=== PATIENT | female | born 1945 | race Caucasian/White ===

== ENCOUNTER 2024-03-22 09:50 | Outpatient (AMB) | payer MEDICARE, OTHER, SELFPAY ==
--- NOTE | 2024-03-22 09:52 | A.OFFPC_ITS ---
Vital Signs 03/22/24 10:03 Height 5 ft 1.81 in Weight 111 lb 8 oz BMI 20.5 BP 128/66 Blood Pressure Location Rt brachial Position Sitting Respiration 14 Pulse 64 Pulse Source Pulse Oximeter Intake Visit Reasons: Physical Exam Intake Note: New patient visit Import Dispatcher Required: No Allergies No Known Allergies Allergy (Verified 03/22/24 09:53) Tobacco use date assessed: 03/22/24 Fall risk assessment: No Falls in past year Last assessed Fall Risk: 03/22/24 Dental Screening Dental Screen Date: 03/22/24 Did you have a dental visit in the last 12 months?: Yes Did you have a dental problem in the last 6 months where you did not have access to dental care?: No Was dental information given to patient?: Patient has dentist HPI HPI Comments History of Present Illness Details 78 year old female with a past medical h istory of hyperlipidemia presenting for annual exam MSK: Chronic midline thoracic pain (left back side). NEOS occasional rip hip bursitis. Right rotator cuff tear last year. Did PT and cortisone injection which quieted symptoms. Hyperlipidemia: statin hesitant. Familial element. Following a plant based diet. T Chol 254 with LDL 162 and HDL 72. Brother recently diagnosed with multiple scwhannoma. 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 She would like to see genetics. Adrián-dental 3x/year Ophtho-Dr Flowers Sees medical fee clerk-Dr Parker 03/01/2022) Sees [facility] annually, last visit 7. Bone density Feb 2023-osteoporosis, improving Mammo Feb 2023-[address] Tdap 02/26/2019 Pneumovax 11/10/2015 Colonoscopy 12/2021-hemorrhoids, diverticulosis ROS CONSTITUTIONAL: Denies weight loss, fever and chills. HEENT: Denies changes in vision and hearing. RESPIRATORY: Denies SOB and cough. CV: Denies palpitations and CP GI: Denies abdominal pain, nausea, vomiting and diarrhea. : Denies dysuria and urinary frequency. MSK: Denies new myalgia and joint pain. SKIN: Denies rash and pruritus. NEUROLOGICAL: Denies headache PSYCHIATRIC: Denies recent changes in mood. PHYSICAL EXAM: GENERAL: Alert and oriented x 3. NAD EYES: EOMI. Anicteric. HENT: Moist mucous membranes. No scleral icterus. No cervical lymphadenopathy. LUNGS: Clear to auscultation bilaterally. CARDIOVASCULAR: Regular rate and rhythm. No murmur. No JVD. ABDOMEN: Soft, non-tender +bs EXTREMITIES: No edema. Non-tender. SKIN: No rashes or lesions. Warm. NEUROLOGIC: No focal neurological deficits. CN II-XII grossly intact PSYCHIATRIC: Cooperative. Appropriate mood and affect [facility] Medical History DCIS (ductal carcinoma in situ) Surgical History History of lumpectomy of left breast Hx of tubal ligation History of hernia surgery History of bunionectomy Family History Father Diabetes Paternal Grandmother Breast cancer Paternal Aunt Breast cancer Mother HTN (hypertension) Social History Housing: House Alcohol intake: current Patient Tobacco Use Status: Never used Tobacco e-Cigarette/Vaping Use: Never Used Second Hand Smoke Exposure: No service: No Current occupational status: retired Cognitive needs: No Hearing needs: Yes (deaf in right ear) Vision needs: Yes (glasses) Questionnaire PHQ-9 Over the last 2 weeks, how often have you been bothered by any of the following problems? 1. Little interest or pleasure in doing things: not at all 2. Feeling down, depressed, or hopeless: not at all 3. Trouble falling or staying asleep, or sleeping too much: not at all 4. Feeling tired or having little energy: not at all 5. Poor appetite or overeating: not at all 6. Feeling bad about yourself - or that you are a failure or have let yourself or your family down: not at all 7. Trouble concentrating on things, such as reading the newspaper or watching television: not at all 8. Moving or speaking so slowly that other people could have noticed. Or the opposite - being so fidgety or restless that you have been moving around a lot more than usual: not at all 9. Thoughts that you would be better off or of hurting yourself in some way : not at all Total score: 0 Depression Screening Interpretation: Negative Depression Screening Done: Yes 07534 - PHQ-9 Billing: Yes Source: Developed by Drs. Aristeo Rivero, Keyana Fonseca, Max Short and colleagues, with an educational juan carlos from [employer]. Thrive Questionnaire I am a: Patient What is your living situation today?: I have a steady place to live Within the past 12 months, did the food you bought not last and you didn't have the money to get more?: Never true Within the past 12 months, did you worry whether your food would run out before you got money to buy more?: Never true Do you have trouble paying for medicines?: No Do you have trouble getting transportation to medical appointments?: No Do you have trouble paying your heating and electricity bill?: No Do you have trouble taking care of your child, family member or friend?: No Do you have trouble with day-to-day activities such as bathing, preparing meals, shopping, managing finances, etc.?: No Are you currently unemployed and looking for a job?: No Are you interested in more education?: No Please select the resources that you would like help with: None Currently or been in a relationship where the following occur: No concerns reported THRIVE Score: 0 AUDIT C Alcohol Use Questionnaire (AUDIT-C) 1. How often do you have a drink containing alcohol?: Monthly or less 2. How many drinks containing alcohol do you have on a typical day when you are drinking?: 1 or 2 3. How often do you have six or more drinks on one occasion?: Never Total Score: 1 JEEVAN-7 AMB Questionnaire JEEVAN-7 Feeling nervous, anxious, or on edge: 0 = Not at all Not being able to stop or control worryin = Not at all Worrying too much about different things: 0 = Not at all Trouble relaxin = Not at all Being so restless that it is hard to sit still: 0 = Not at all Becoming easily annoyed or irritable: 0 = Not at all Feeling afraid as if something awful might happen: 0 = Not at all Total JEEVAN-7 score (0-4 normal; 5-9 mild; 10-14 moderate; 15-21 severe): 0 Source: Developed by Drs. Aristeo Rivero, Keyana Fonseca, Max Short and colleagues, with an educational juan carlos from [employer]. Physical exam (Primary Care) Vital Signs: Last Vital Signs Pulse 64 03/22/24 10:03 Resp 14 03/22/24 10:03 BP 128/66 03/22/24 10:03 BMI result Body Mass Index 20.5 Tobacco/Smoking Status: Tobacco use Status Tobacco use date assessed 03/22/24 03/22/24 10:02 Patient Tobacco Use Status Never used Tobacco 03/22/24 10:02 e-Cigarette/Vaping Use Never Used 03/22/24 10:02 PHQ-9: PHQ-9 Score PHQ-9: Total score 0 03/22/24 10:28 Depression Screening Interpretation: Negative Currently or been in a relationship where the following occur: No concerns reported Coding Level of Care Code Est Pt Prev Care >65y(72404) Diagnoses Physical exam Z00.00 Mixed hyperlipidemia E78.2 Hyperlipidemia type: mixed hyperlipidemia Additional Codes PHQ-9 - 27847 - PHQ-9 Billing: Yes ([id number]) Assessment & Plan Assessment & Plan (1) Physical exam: Code(s): Z00.00 - Encounter for general adult medical examination without abnormal findings Category: Medical Plan: 78 year old female presenting for physical exam. Interval history reviewed. Medicaitons reconciled. (2) Hyperlipidemia: Code(s): E78.5 - Hyperlipidemia, unspecified Category: Medical Qualifiers: Hyperlipidemia type: mixed hyperlipidemia Qualified Code(s): E78.2 - Mixed hyperlipidemia Plan: Monitor labs. Plan Family history of genetic disorder. referral placed Orders: Orders Comprehensive Met. Panel 03/22/24 E78.5 - Hyperlipidemia, unspecified, Z13.0 - Encounter for screening for diseases of the blood and blood-forming organs and certain disorders involving the immune mechanism, Z13.228 - Encounter for screening for other metabolic disorders Vitamin B12 and Folate 03/22/24 E78.5 - Hyperlipidemia, unspecified, Z13.0 - Encounter for screening for diseases of the blood and blood-forming organs and certain disorders involving the immune mechanism, Z13.228 - Encounter for screening for other metabolic disorders Complete Blood Count Auto Diff 03/22/24 E78.5 - Hyperlipidemia, unspecified, Z13.0 - Encounter for screening for diseases of the blood and blood-forming organs and certain disorders involving the immune mechanism, Z13.228 - Encounter for screening for other metabolic disorders Lipid Panel 03/22/24 E78.5 - Hyperlipidemia, unspecified, Z13.0 - Encounter for screening for diseases of the blood and blood-forming organs and certain disorders involving the immune mechanism, Z13.228 - Encounter for screening for other metabolic disorders Vitamin D 1,25 dihydroxy 03/22/24 E78.5 - Hyperlipidemia, unspecified, Z13.0 - Encounter for screening for diseases of the blood and blood-forming organs and certain disorders involving the immune mechanism, Z13.228 - Encounter for screening for other metabolic disorders Referrals Genetics Referral E78.5 - Hyperlipidemia, unspecified, Z13.0 - Encounter for screening for diseases of the blood and blood-forming organs and certain diso rders involving the immune mechanism, Z13.228 - Encounter for screening for other metabolic disorders, Z84.89 - Family history of other specified conditions
[2024-03-22 10:03] VITALS: BP 128/66; PULSE 64; RESP 14; BMI 20.5
--- OUTSIDE RECORDS SUMMARY | 2024-03-22 10:22 | XMS_ITS ---
Author Organization [facility] Address [address] [place] [address] Care Team Providers Care Security Shift Manager Name Role Phone BRYCE GAITAN Primary Care Provider Tracie Blackburn Unavailable [phone] Allergies Allergen (clinical drug ingredient) Drug/Non Drug Allergy documented on EMR Reaction Allergy Type Onset Date Status meperidine Demerol Unknown Drug Allergy Active REASON FOR VISIT INTERVAL BREAST & PELVIC Medications Medication SIG (Take, Route, Frequency, Duration) Notes Start Date End Date Status Vitamin D3 25 MCG (1000 UT) 1 capsule Or ally Once a day for 30 day(s) Active Fluticasone Propionate 50 MCG/ACT Nasal for 30 Active Vitamin B Complex - as directed Orally Active Social History Tobacco Use: Social History Observation Description Date Details (start date - stop date) Never Smoker NA - NA Sexual History Question Answer Notes Had sex in the past 12 months (vaginal, oral, or anal)? No AUDIT-C (Standard) Question Answer Notes Did you have a drink contain ing alcohol in the past year? Yes How often did you have a dri nk containing alcohol in the past year? Never (0 point) How many drinks did you have on a typical day when you were drinking in the past year? 1 or 2 drinks (0 point) How often did you have six o r more drinks on one occasion in the past year? Less than monthly (1 point) Points 1 Interpretation Negative Tobacco Control (Standard) Question Answer Notes Tobacco use: Nonsmoker Vital Signs Temperature 97.5 degrees Fahrenheit 03/11/19 25 Blood pressure systolic 120 mm Hg 03/11/19 25 Blood pressure diastolic 74 mm Hg 025 Height 63 in 03/11/2024 Weight 112 lbs 03/11/2024 BMI 19.84 kg/m2 03/11/2024 Encounters Encounter Location Date Provider Diagnosis [facility] [address] [place] [address] 03/11/2024 Tracie Parker Encounter for gynecological examination (general) (routine) with abnormal findings Z01.411 ; Encounter for screening mammogram for malignant neoplasm of breast Z12.31 ; Age-related osteoporosis without current pathological fracture M81.0 ; Personal history of malignant neoplasm of breast Z85.3 and Postmenopausal atrophic vaginitis N95.2 Assessments Encounter Date Diagnosis (ICD Code) Assessment Notes Treatment Notes Treatment Clinical Notes Section Notes 03/11/2024 Encounter for gynecological examination (general) (routine) with abnormal findings (ICD-10 - Z01.411) NO MORE PAP TESTS. 03/11/2024 Encounter for screening mammogram for malignant neoplasm of breast (ICD-10 - Z12.31) REGULAR MAMMOGRAMS AND SBE'S WERE RECOMMENDED. 03/11/2024 Age-related osteoporosis without current pathological fracture (ICD-10 - M81.0) DISCUSSED OSTEOPOROSIS AND ITS IMPACT ON HER HEALTH. ADEQUATE CALCIUM AND VIT D. WEIGHT BEARING EXERCISES. OSTEO PRECAUTIONS. REPEAT BMD IN 2025. 03/11/2024 Personal history of malignant neoplasm of breast (ICD-10 - Z85.3) CONTINUE FOLLOW UP AT [facility]. 03/11/2024 Postmenopausal atrophic vaginitis (ICD-10 - N95.2) DISCUSSED FINDINGS, DX AND TX OPTIONS. PAT IS HAPPY WITH LUBRICANTS. Plan Of Treatment Treatment Notes Assessment Notes Encounter for gynecological examination (general) (routine) with abnormal findings NO MORE PAP TESTS. Encounter for screening mamm ogram for malignant neoplasm of breast REGULAR MAMMOGRAMS AND SBE'S WERE RECOMMENDED. Age-related osteoporosis wit hout current pathological fracture DISCUSSED OSTEOPOROSIS AND ITS IMPACT ON HER HEALTH. ADEQUATE CALCIUM AND VIT D. WEIGHT BEARING EXERCISES. OSTEO PRECAUTIONS. REPEAT BMD IN 2025. Personal history of malignan t neoplasm of breast CONTINUE FOLLOW UP AT [facility]. Postmenopausal atrophic vaginitis DISCUSSED FINDINGS, DX AND TX OPTIONS. PAT IS HAPPY WITH LUBRICANTS. Pending Test Test Name Order Date MM Digital Mammo Screening 03/11/2024 Next Appt Details Follow Up: 1 Year, Reason: Provider Name:Tracie bronson, 03/13/2025 10:20:00 AM, [address], [address], [place], [address], Progress Notes * ALECIA KWONGOB:1945 (78 yo F)Acc No.[id number]:03/11/2024 PROGRESS NOTES Patient:?KIKO KWONG Appointment Provider:?Tracie bronson M.D. :1945???Age:78 Y???Sex:Female D ate:03/11/2024 Address:[address] [place], [place] [id number] Pcp:BRYCE GAITAN Subjective: * Chief Complaints: * ???INTERVAL BREAST & PELVIC * HPI: ???New/Follow-up Patient Consult:? PAT ENTERED MENOPAUSE IN HER 50'S.? SHE USES LUBRICANTS FOR MILD DYSPAREUNIA AND IS DOING WELL. S/P LEFT LUMPECTOMY FOR DCIS IN 2000.? SHE CONTINUES TO BE FOLLOWED AT [facility]. S/P BILATERAL INGUINAL HERNIORRHAPHIES YEARS AGO. HER LAST MAMMOGRAM DONE IN JAN 2024 SHOWED BREASTS ARE NOT DENSE AND WAS NORMAL. HER LAST PAP TEST IN 2020 WAS NEGATIVE AND HPV NEGATIVE.? SHE HAS NO HX OF ABNORMAL PAP TESTS. HER LAST BMD IN 2023 SHOWED IMPROVEMENT IN HER T-SCORES FROM -2.9 AT THE SPINE AND -3.0 AT THE FEMORAL NECK IN 2020 TO -2.6 AND -2.7 RESPECTIVELY IN 2023.? SHE REFUSED MEDICATIONS BUT IS MORE CAREFUL ABOUT TAKING ADEQUATE CALCIUM AND VIT D.? SHE ALSO EXERCISES REGULARLY. SHE HAD A COLONOSCOPY DONE IN 2021. [employer] X 3. * ROS:?general:?no?chest pain.?no?palpitations.?no?headache.?no?cough.?no?shortness of breath.?no?fever.?no?unexplained weight loss.?no?nausea/vomiting.?no?change in bowel movements.?no blood in stool.?no?genitourinary complaints.?no?skin complaints.? * Medical History:? 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 Control:?none.?Menarche?9.5.?Colonoscopy?12/2021, 07/25/16 q 5 years.?Bone Density:?01/22/21, 12/10/18.? * OB History:?Total pregnancies?4.?Total living children?4.?NVD?4.? * Surgical History:?Colonoscop y -3 polyps Appendectomy Right Breast Cyst Aspiration Bilateral Cataracts Surgery Left Lumpectomy - DCIS Bilateral Tubal Ligation D/C, Hysteroscopy with Resection of Endometrial Mass Hernia Surgery Right Bunionectomy/Hammertoe * Hospitalization/Major Diagno stic Procedure:?4 Vaginal Deliveries See Surgical Hx * Family History:?Mother: dece ased, Heart Disease.?Father: , Diabtetes.? Paternal Aunts: Breast Cancer. * Social History:?Tobacco Use:?Tobacco Control (Standard)?Tobacco use:?Nonsmoker ???Sexual History:?Sexual History?Had sex in the past 12 months (vaginal, oral, or anal)??No ?Details of Sexual History?Are you sexually active??No ???Drugs/Alcohol:?Drugs?Have you used drugs other than those for medical reasons in the past 12 months??No ???Miscellaneous:?Children: yes, 4. ?Exercise: yes, Walking 2 1/4 miles daily, 30 mins core strengthing. ?Home smoke detector use: yes. ?Living with: spouse. ?Marital status: . ?Natural support system: yes. 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 ?Sexually active: no. ???Drug/Alcohol:?AUDIT-C (Standard)?Did you have a drink containing alcohol in the past year??Yes ?How often did you have a drink containing alcohol in the past year??Never (0 point) ?How many drinks did you have on a typical day when you were drinking in the past year??1 or 2 drinks (0 point) ?How often did you have six or more drinks on one occasion in the past year??Less than monthly (1 point) ?Points?1 ?Interpretation?Negative * Medications:?TakingVitamin B Complex - Capsule as directed Orally Vitamin D3 25 MCG (1000 UT) Capsule 1 capsule Orally Once a day Fluticasone Propionate 50 MCG/ACT Suspension Nasal Taking Vitamin B Complex - Capsule as directed Orally Taking Vitamin D3 25 MCG (1000 UT) Capsule 1 capsule Orally Once a day Taking Fluticasone Propionate 50 MCG/ACT Suspension Nasal DiscontinuedFlax Seed Oil 1000 MG Capsule as directed Orally Medication List reviewed and reconciled with the patientDiscontinued Flax Seed Oil 1000 MG Capsule as directed Orally Medication List reviewed and reconciled with the patient * Allergies:?Demerol: Allergyn o[Allergies Verified] Objective: * Vitals:?Ht: 63 in, Wt: 112 l bs, BMI:19.84Index, BP: 120/74 mm Hg, Temp: 97.5 F. * Examination: ???General Examination: ?GENERAL APPEARANCE:?in no acute distress, well developed, well nourished.?BREASTS:?normal, no dimpling, no discharge, no drainage, no masses palpable bilaterally, nontender.?COMMODITIES MANAGER exam: ?EXTERNAL GENITALIA:?Normal female. No lesions, erythema or discharge.?VAGINA:?atrophic changes.?CERVIX:?No cervical motion tenderness, discharge or lesions.?UTERUS:?normal size, shape and consistency, normal mobility, nontender.?ADNEXA:?no masses or tenderness bilaterally.? Assessment: * Assessment: 1.?Encounter for gynecologic al examination (general) (routine) with abnormal findings - Z01.411???2.?Encounter for screening mammogram for malignant neoplasm of breast - Z12.31???3.?Age-related osteoporosis without current pathological fracture - M81.0???4.?Personal history of malignant neoplasm of breast - Z85.3???5.?Postmenopausal atrophic vaginitis - N95.2??? Plan: * Treatment: 2.?Encounter for screening m ammogram for malignant neoplasm of breast?Imaging: MM Digital Mammo Screening Notes: REGULAR MAMMOGRAMS AND SBE'S WERE RECOMMENDED.?? 3.?Age-related osteoporosis without current pathological fracture? Notes: DISCUSSED OSTEOPOROSIS AND ITS IMPACT ON HER HEALTH. ADEQUATE CALCIUM AND VIT D. WEIGHT BEARING EXERCISES. OSTEO PRECAUTIONS. REPEAT BMD IN 2025.?? 4.?Personal history of malig nant neoplasm of breast? Notes: CONTINUE FOLLOW UP AT [facility].?? 5.?Postmenopausal atrophic v aginitis? Notes: DISCUSSED FINDINGS, DX AND TX OPTIONS. PAT IS HAPPY WITH LUBRICANTS.?? * Procedure Codes:? * Follow Up:?1 Year * Images: Billing Information: * Visit Code:? * Procedure Codes:? * Sign off status: Completed true * Appointment Provider:?Tracie Parker M.D. Date:?03/11/2024 Generated for Madhavi deninson/Nevaeh/Prasannasmitting on:?03/22/2024 10:22 AM EST History and Physical Notes * HPI (History of Present Illness) Category Sub-Category Detail Notes Category Not es New/Follow-up Patient Consult PAT ENTERED MENOPAUSE IN HER 50'S. SHE USES LUBRICANTS FOR MILD DYSPAREUNIA AND IS DOING WELL. S/P LEFT LUMPECTOMY FOR DCIS IN 2000. SHE CONTINUES TO BE FOLLOWED AT [facility]. S/P BILATERAL INGUINAL HERNIORRHAPHIES YEARS AGO. HER LAST MAMMOGRAM DONE IN JAN 2024 SHOWED BREASTS ARE NOT DENSE AND WAS NORMAL. HER LAST PAP TEST IN 2020 WAS NEGATIVE AND HPV NEGATIVE. SHE HAS NO HX OF ABNORMAL PAP TESTS. HER LAST BMD IN 2023 SHOWED IMPROVEMENT IN HER T-SCORES FROM -2.9 AT THE SPINE AND -3.0 AT THE FEMORAL NECK IN 2020 TO -2.6 AND -2.7 RESPECTIVELY IN 2023. SHE REFUSED MEDICATIONS BUT IS MORE CAREFUL ABOUT TAKING ADEQUATE CALCIUM AND VIT D. SHE ALSO EXERCISES REGULARLY. SHE HAD A COLONOSCOPY DONE IN 2021. [employer] X 3. Examination Category Sub-Category Detail Notes Category Not es General Examination GENERAL APPEARANCE: in no ac [place] distress, well developed, well nourished BREASTS: normal, no dimpling, no discharge, no drainage, no masses palpable bilaterally, nontender COMMODITIES MANAGER exam CERVIX: No cervical motion tendernes s, discharge or lesions VAGINA: atrophic changes EXTERNAL GENITALIA: Normal female. No le sions, erythema or discharge UTERUS: normal size, shape a nd consistency, normal mobility, nontender ADNEXA: no masses or tendern ess bilaterally
--- OUTSIDE RECORDS SUMMARY | 2024-03-22 10:22 | XMS_ITS | Patient Health Record ---
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2) Active confirmed Problem Age-related osteoporosis (632034596) Age-related osteoporosis without current pathological fracture (M81.0) Active confirmed Problem Intraductal carcinoma in situ of left breast (4647519353456672 ) 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 Problem Primary ovarian failure (26823633) Other primary ovarian failure (E28.39) Active confirmed Problem Diverticulitis of colon (822939305) Diverticulitis of intestine, part unspecified, without perforation or abscess without bleeding (K57.92) Active confirmed Problem Uterovaginal prolapse (33635947) Uterovaginal prolapse, unspecified (N81.4) Active confirmed Problem Functional urinary incontinence (878468312) Functional urinary incontinence (R39.81) Active confirmed Problem Family history of malignant neoplasm of breast (382769734) Family history of malignant neoplasm of breast (Z80.3) Active confirmed Problem Personal history of primary malignant neoplasm of breast (194971381) Personal history of malignant neoplasm of breast (Z85.3) Active confirmed Problem History of carcinoma in situ of breast (0091095491126912 8) Personal history of in-situ neoplasm of breast (Z86.000) Active confirmed Vital Signs Temperature 97.5 degrees Fahrenheit 03/11/2024 Blood pressure diastolic 74 mm Hg 03/11/2024 Height 63 in 03/11/2024 Blood pressure systolic 120 mm Hg 03/11/2024 Weight 112 lbs 03/11/2024 BMI 19.84 kg/m2 03/11/2024 Encounters Encounter Location Date Provider Diagnosis [address] [address] 03/11/2024 Tracie Parker Encounter for gynecological examination [...] (ICD-10 - Z85.3) CONTINUE FOLLOW UP AT [facility]. 03/11/2024 Postmenopausal atrophic vaginitis (ICD-10 - N95.2) DISCUSSED FINDINGS, DX AND TX OPTIONS. PAT IS HAPPY WITH LUBRICANTS. Plan Of Treatment Pending Test Test Name Order Date MAMMOGRAM, SCREENING 01/20/2021 MAMMOGRAM, SCREENING 03/06/2023 BONE DENSITY 03/06/2023 BONE DENSITY 01/20/2021 MM Digital Mammo Screening 01/20/2021 MM Digital Mammo Screening 03/01/2022 MM Digital Mammo Screening 03/06/2023 MM Digital Mammo Screening 03/11/2024 Screening Bilateral Breast Ultrasound Next Appt Details Provider Name:Tracie bronson, 03/13/2025 10:20:00 AM, [address] [place] [address], [address], [place], [address], Insurance Providers Payer Name Payer Address Payer Phone Subscriber Number Group Number Insured Name Patient Relationship to Insured Coverage Start Date Coverage End Date MEDICARE [address] GERALD ASH [id number] KIKO KWONG Self - patient is the insured [facility] [address] [place] [address] [id number] KIKO KWONG Self - patient is the insured Medical (General) History Medical History History ICD Code Age-related osteoporosis without current pathological fracture M81.0 Diverticulitis of intestine, part unspecified, without perforation or abscess without bleeding K57.92 Other primary ovarian failure E28.39 Uterovaginal prolapse, unspecified N81.4 Personal history of in-situ neoplasm of breast Z86.000 Family history of malignant neoplasm of breast Z80.3 Postmenopausal atrophic vaginitis N95.2 Intraductal carcinoma in situ of left br east D05.12 Inconclusive mammogram R92.2 Mammographic heterogeneous density, bila teral breasts R92.333 Surgical History Surgery Date(Month/Year) Colonoscopy -3 polyps Appendectomy Right Breast Cyst Aspiration Bilateral Cataracts Surgery Left Lumpectomy - DCIS Bilateral Tubal Ligation D/C, Hysteroscopy with Resection of Endo metrial Mass Hernia Surgery Right Bunionectomy/[place]ammert[place] Hospitalization History Reason Date(Month/Year) See Surgical Hx 4 Vaginal Deliveries
== END 2024-03-22 10:39 | disposition home or self-care (01) ==
PROVIDERS: PCP Internal Medicine; Visit Provider Internal Medicine
DX: Z00.00 Encounter for general adult medical examination without abnormal findings (principal); E78.2 Mixed hyperlipidemia

== ENCOUNTER → 2024-03-22 09:50 | Outpatient (BNVA) | payer OTHER, SELFPAY | PROVIDERS: PCP Internal Medicine; Visit Provider Internal Medicine | DX: Z00.00 Encounter for general adult medical examination without abnormal findings (principal); E78.2 Mixed hyperlipidemia | CPT/HCPCS: 96127; 99397 ==

== ENCOUNTER 2024-10-21 09:03 | Outpatient (REF) | payer MEDICARE, OTHER, SELFPAY ==
--- OUTSIDE RECORDS SUMMARY | 2024-10-21 10:35 | XMS_ITS | Clinical Summary ---
Author Organization [facility] Address [address] [facility] [address] [facility] [address] [place] [address] Phone Care Team Providers Care Development Specialist Name Role Phone Pcp, Unknown Primary Care Provider Unavailabl e Allergies No known active allergies Medications fluticasone propionate (FLONASE) 50 mcg/actuation nasal spray 2 sprays daily. 07/07/2023 Active Immunizations Immunization Administration Dates Next Due COVID-19 (Pre-11/28) Moderna Vaccine, mRNA, PF 1 03/31/2020 Pneumococcal conjugate PCV13 11/10/2015 Pneumococcal polysaccharide PPSV23 06/03/2011 Td (adult),2 Lf Tetanus Toxoid, PF, Adsorbed Tdap 02/12/2007 Social History Tobacco Use Types Packs/Day Years Used Date Smoking Tobacco: Never Smokeless Tobacco: Never Education Answer Date Recorded Are you interested in more education? Not on alexys e 09/06/2023 Are you concerned about learning? Not on file 09/06/2023 No 09/06/2023 No 09/06/2023 Digital Access Answer Date Recorded No 09/06/2023 No 09/06/2023 Reliable internet access at home? Not on file 09/06/2023 Device with a working camera? Not on file Comments Unknown Sex and Gender Information Value Date Recorded Sex Assigned at Not on file Legal Sex Female 2:29 PM EDT Gender Identity Not on file Sexual Orientation Not on file Last Filed Vital Signs Vital Sign Reading Time Taken Comments Blood Pressure 134/78 09/06/2023 2:50 PM EDT Pulse 63 09/06/2023 2:50 PM EDT Temperature 36.6 C (97.8 F) 09/06/2023 2:50 PM EDT Respiratory Rate 18 09/06/2023 2:50 PM EDT Oxygen Saturation 100% 09/06/2023 2:50 PM EDT Inhaled Oxygen Concentration - - Weight 49 kg (108 lb) 09/06/2023 2:50 PM EDT Height - - Body Mass Index - - Plan of Treatment Health Maintenance Due Date Last Done Comments LIPID PANEL 1946 DEPRESSION SCREENING 1958 HEPATITIS C SCREENING 1964 ZOSTER VACCINES (1 of 2) 1996 OSTEOPOROSIS SCREENING INITI AL (ONE-TIME) 05/31/2011 RSV VACCINE (1 - 1-dose 75+ series) 2021 INFLUENZA VACCINE (#1) 2024 COVID-19 VACCINE ( - 2024-2 6 season) 2024 01/28/2021, 05/11/2020, 04/20/2020 Adult Td,Tdap Booster 02/26/2029 02/26/2019 , 02/12/2007 PNEUMOCOCCAL VACCINES (50+ years) Completed 11/10/2015, 06/03/2011 SMOKING STATUS SCREENING (On ce After 26 Yrs) Completed 09/06/2023 HEPATITIS A VACCINES Aged Out No long er eligible based on patient's age to complete this topic HIB VACCINES Aged Out No longer eligi ble based on patient's age to complete this topic MENINGOCOCCAL VACCINES (ACWY) Aged Out No longer eligible based on patient's age to complete this topic MENINGOCOCCAL VACCINES (B) Aged Out N o longer eligible based on patient's age to complete this topic Medical Devices Not on file Insurance MEDICARE PART A & B [facility] EXTENSION MEDICARE SUPPLEMENT MEDICARE PART A & B [facility] MEDICARE SUPPLEMENT MEDICARE PART A & B [facility] EXTENSION MEDICARE SUPPLEMENT MEDICARE PART A & B [facility] MEDICARE SUPPLEMENT MEDICARE PART A & B Member Subscriber Plan / Payer (Ef fective 2011-Present) Name:Sheila Mejia Member ID:[id number] Relation to Subscriber:Self Name:Sheila Mejia Subscriber ID:[id number] Payer ID:[id number] Group ID:Not on file Type:Medicare Address: [employer] [address] [place] [address] [place] [address] EXTENSION MEDICARE SUPPLEMENT MEDICARE PART A & B [employer] [facility] EXTENSION MEDICARE SUPPLEMENT Care Teams Development Specialist Relationship Specialty Start Date End Date Pcp, Unknown PCP - General 09/06/23 Additional Source Comments The information contained in this document represents components of the legal health record. It is not the complete legal health record.[facility]
--- OUTSIDE RECORDS SUMMARY | 2024-10-21 10:35 | XMS_ITS | Patient Health Record ---
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 Phone BRYCE GAITAN Primary Care Provider Tracie Blackburn Unavailable [phone] Allergies Allergen (clinical drug ingredient) Drug/Non Drug Allergy documented on EMR Reaction Allergy Type Onset Date Status meperidine Demerol Unknown Drug Allergy Active Reason For Referral No Information Medications Medication SIG (Take, Route, Frequency, Duration) Notes Start Date End Date Status Vitamin D3 25 MCG (1000 UT) 1 capsule Or ally Once a day; Duration: 30 day(s) Active Fluticasone Propionate 50 MCG/ACT Nasal; Duration: 30 Active Vitamin B Complex - as [...] Status Risk Notes Problem Postmenopausal atrophic vaginitis (58110726) Postmenopausal atrophic vaginitis (N95.2) Active confirmed Problem Age-related osteoporosis (798864707) Age-related osteoporosis without current pathological fracture (M81.0) Active confirmed Problem Intraductal carcinoma in situ of left breast (0004606511007550 ) 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 Problem Primary ovarian failure (14931431) Other primary ovarian failure (E28.39) Active confirmed Problem Diverticulitis of colon (124253744) Diverticulitis of intestine, part unspecified, without perforation or abscess without bleeding (K57.92) Active confirmed Problem Uterovaginal prolapse (40551867) Uterovaginal prolapse, unspecified (N81.4) Active confirmed Problem Functional urinary incontinence (331906156) Functional urinary incontinence (R39.81) Active confirmed Problem Family history of malignant neoplasm of breast (665516827) Family history of malignant neoplasm of breast (Z80.3) Active confirmed Problem Personal history of primary malignant neoplasm of breast (921895551) Personal history of malignant neoplasm of breast (Z85.3) Active confirmed Problem History of carcinoma in situ of breast (2227047295800746 8) Personal history of in-situ neoplasm of breast (Z86.000) Active confirmed Vital Signs Temperature 97.5 degrees Fahrenheit 03/11/2024 Blood pressure diastolic 74 mm Hg 03/11/2024 Height 63 in 03/11/2024 Blood pressure systolic 120 mm Hg 03/11/2024 Weight 112 lbs 03/11/2024 BMI 19.84 kg/m2 03/11/2024 Encounters Encounter Location Date Provider Diagnosis [address] [address] 03/11/2024 Tracie Parker Encounter for gynecological examination [...] (ICD-10 - Z85.3) CONTINUE FOLLOW UP AT [facility]. 03/11/2024 Postmenopausal atrophic vaginitis (ICD-10 - [...] Details Provider Name:Tracie bronson, 03/13/2025 10:20:00 AM, [address], [address], [place], [address], Insurance Providers Payer Name Payer Address Payer Phone Subscriber Number Group Number Insured Name Patient Relationship to Insured Coverage Start Date Coverage End Date MEDICARE [address] GERALD ASH [id number] KIKO KWONG Self - patient is the insured [facility] [address] [place] [address] [id number] KIKO KWONG Self - patient is [...]
--- OUTSIDE RECORDS SUMMARY | 2024-10-21 10:35 | XMS_ITS ---
Author Name [facility] Organization Unknown Care Team Organization Name Specialty Phone Email Start Date End [facility] 09/27/2022 09/27/2022 [facility] Geoff Lawrence DO Primary Care 07/15/202209/06 [facility] EBONY IRVING Primary Care 04/13/2022 09/25/2023 [facility] Zak, PROVIDER Primary Care 12/14/202109/06
[2024-10-21 11:21] LABS: MANUAL DIFF FLAG NO
[2024-10-21 11:29] LABS: Hematocrit 41.6 % (37.0-47.0); Hemoglobin 13.6 g/dl (12.0-16.0); Imm Gran Abs Auto 0.01 X10*3/uL (0.00-0.03); Imm Gran Pct Auto 0.2 % (0.0-0.4); Lymphocytes Absolute Auto 1.5 X10*3/uL (1.2-4.9); Mean Corpuscular HGB Conc 32.7 g/dl (31.0-35.0); Mean Corpuscular Hemoglobin 28.5 pg (27.0-33.0); Mean Corpuscular Volume 87.2 fL (80.0-98.0); NRBC Abs Auto 0.000 X10*3/uL (0.0-0.012); NRBC Pct Auto 0.0 /100WBC (0.0-0.2); Platelet Count 244 X10*3/uL (160-400); Red Blood Count 4.77 X10*6/uL (4.20-5.50); White Blood Count 4.2 X10*3/uL (4.8-10.8)
[2024-10-21 11:53] LABS: Alanine Aminotransferase 24 U/L (0-31); Albumin Level 4.3 g/dL (3.5-5.0); Alkaline Phosphatase 88 U/L (39-117); Anion Gap 10 (12-20); Aspartate Amino Transferase 31 U/L (5-31); Blood Urea Nitrogen 19 mg/dL (9-16); Calcium 9.1 mg/dL (8.4-10.2); Carbon Dioxide 27 mmol/L (22-29); Chloride 108 mmol/L (96-108); Cholesterol 239 mg/dL (<200); Estimated Glomerular Filt Rate > 60; HDL Cholesterol 66 mg/dL (>40); Potassium 4.2 mmol/L (3.3-5.1); Sodium 141 mmol/L (135-145); Total Protein 6.6 g/dL (6.5-8.0); Triglycerides 102 mg/dL (<150)
[2024-10-21 12:15] LABS: Folate 14.2 ng/mL (> or = 4.0); Vitamin B12 484 pg/mL (200-900)
[2024-10-28 14:03] LABS: VITAMIN D (1,25 OH) D3 54 pg/mL; Vit D (1,25-Dihydroxy) Total 54 pg/mL (18-72); Vitamin D (1,25 OH) D2 <8 pg/mL
== END 2024-10-21 09:04 | disposition home or self-care (01) ==
LOC: HO.WFDLDS 09:03
PROVIDERS: Visit Provider Internal Medicine
DX: Z13.228 Encounter for screening for other metabolic disorders (principal); Z13.0 Encounter for screening for diseases of the blood and blood-forming organs and certain disorders involving the immune mechanism; E78.5 Hyperlipidemia, unspecified
CPT/HCPCS: 36415; 80053; 80061; 82607; 82652; 82746; 85025

== ENCOUNTER 2024-10-29 13:17 | Outpatient (AMB) | payer MEDICARE, OTHER, SELFPAY ==
--- NOTE | 2024-10-29 13:22 | A.OFFVIS_ITS ---
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 NEOS occasional rip hip bursitis. Right rotator cuff tear last year. Did PT and cortisone injection which quieted symptoms. Hyperlipidemia: Statin hesitant. Familial element. Following a plant based diet. Brother diagnosed last year multiple scwhannoma. 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 Tdap 02/26/2019 Pneumovax 11/10/2015 Colonoscopy 12/2021-hemorrhoids, diverticulosis HRA reviewed medications reconciled Care team reviewed ROS CONSTITUTIONAL: Denies weight loss, fever and chills. HEENT: Denies changes in vision and hearing. RESPIRATORY: Denies SOB and cough. CV: Denies palpitations and CP GI: Denies abdominal pain, nausea, vomiting and diarrhea. : Denies dysuria and urinary frequency. MSK: Denies new myalgia and joint pain. SKIN: Denies rash and pruritus. NEUROLOGICAL: Denies headache PSYCHIATRIC: Denies recent changes in mood. PHYSICAL EXAM: GENERAL: Alert and oriented x 3. NAD EYES: EOMI. Anicteric. HENT: Moist mucous membranes. No scleral icterus. No cervical lymphadenopathy. LUNGS: Clear to auscultation bilaterally. CARDIOVASCULAR: Regular rate and rhythm. No murmur. No JVD. ABDOMEN: Soft, non-tender +bs EXTREMITIES: No edema. Non-tender. SKIN: No rashes or lesions. Warm. NEUROLOGIC: No focal neurological deficits. CN II-XII grossly intact PSYCHIATRIC: Cooperative. Appropriate mood and affect [facility] Medical History DCIS (ductal carcinoma in situ) Surgical History History of lumpectomy of left breast Hx of tubal ligation History of hernia surgery History of bunionectomy Family History Father Diabetes Paternal Grandmother Breast cancer Paternal Aunt Breast cancer Mother HTN (hypertension) Social History Housing: House Alcohol intake: current Patient Tobacco Use Status: Never used Tobacco e-Cigarette/Vaping Use: Never Used Second Hand Smoke Exposure: No service: No Current occupational status: retired Cognitive needs: No Hearing needs: Yes (deaf in right ear) Vision needs: Yes (glasses) Questionnaire Medicare Wellness Checkup What [age]?: [age] What gender do you identify with?: female During the past 4 weeks, how much have you been bothered by emotional problems such as feeling anxious, depressed, irritable, sad or downhearted, and blue?: not at all During the past 4 weeks, has your physical & emotional health limited your social activities with family, friends, neighbors, or groups?: not at all During the past 4 weeks, how much bodily pain have you generally had?: moderate pain During the past 4 weeks, was someone available to help you if you needed & wanted help?: yes, as much as I wanted During the past 4 weeks, what was the hardest physical activity you could do for at least 2 minutes?: heavy Can you get to places out of walking distance without help? (For eg., can you travel alone on buses, taxis or drive your car?): Yes Can you go shopping for groceries or clothes without someone's help?: Yes Can you prepare your own meals?: Yes Can you do your housework without help?: Yes Because of any health problems, do you need the help of another person with your personal care needs such as eating, bathing, dressing or getting around the house?: No Can you handle your own money without help?: No During the past 4 weeks, how would you rate your health in general?: excellent During the past 4 weeks how have things been going for you?: very well; could hardly better Are you having difficulties driving your car?: no Do you always fasten your seat belt when you are in a car?: yes, usually During past 4 weeks, have you been bothered by the following: never: Falling or dizzy when standing up, Sexual problems?, Trouble eating well?, Teeth or denture problems?, Problems using the telephone? and Tiredness or fatigue? Have you fallen 2 or more times in the past year?: No Are you afraid of falling?: No Are you a smoker?: no During the past 4 weeks, how many drinks of wine, beer, or other alcoholic beverages did you have?: 1 drink or less per week (One or less a month) Do you exercise for about 20 minutes 3 or more times a week?: yes, all the time Have you been given information to help with the following?: yes: Keeping track of your medications? (Dont take any prescribed medication) and no: Hazards in your house that might hurt you? How often do you have trouble taking medicines the way you have been told to take them?: I do not have to take medicine (doesnt take any currently prescribed medication) How confident are you that you can control & manage most of your health problems?: very confident What is your race?: White Mini Mental State Exam (MMSE) Orientation What is the (year) (season) (date) (day) (month)?: year (2024), season (fall), date (), day (Monday) and month (October) Where are we (state) (county) (town or city) (hospital) (floor)?: state ([place]), county ([place]), town or city ([place]), hospital/clinic ([facility]) and floor (first ) Registration Name of 3 unrelated objects clearly and slowly, then ask patient to repeat all 3 of them. (1st repeat determines score. Make sure they can repeat all three): object 1 (Ball), object 2 (flag) and object 3 (tree) Attention & Calculation (CHOOSE ONE) Ask pt to begin with 100 & count backward by 7. Stop after 5 repeats. If pt cannot ask them to spell the word WORLD backward.: 93 Recall Ask patient to repeat the 3 items from question #3.: object 1 (ball), object 2 (flag) and object 3 (tree) Language Show patient a wristwatch & ask what it is. Repeat for pencil.: watch and pencil Ask the patient to repeat the phrase 'No ifs, ands, or buts' after you.: correct Ask the patient to 'take a piece of paper with their right hand' 'fold paper in half' 'place paper on floor': take paper in right hand and place paper on floor Print the sentence 'CLOSE YOUR EYES' on a piece. If patient actually closes eyes then score.: followed written direction Give patient a blank piece of paper & ask to write a sentence. Score if it contains a noun & verb.: sentence contains subject and verb Ask patient to copy figure of intersecting pentagons exactly. Score if all 10 angles & 2 intersects are included.: all 10 angles present & 2 are intersected Score Score: 25 Activity of Daily Living Bathing - sponge bath, tub bath or shower: receives no assistance (gets in/out by self, if usual bathing means Dressing - getting clothes from closets & drawers, including inner/outer garmen ts & fasteners.: gets clothes & gets completely dressed without help Toileting - going to the 'toilet room' for urine/bowel elimination & cleaning self/arranging clothes: goes to toilet room, cleans self, arranges clothes without help Transfer: moves in & out of bed and chair without help (may use support object) Continence: controls urination/bowel movements completely by self Feeding: feeds self without help Total Score: 0 Information obtained from: patient Using telephone: independent Traveling: independent Shopping: independent Preparing meals: independent Housework: independent Taking medicine: independent Managing money: independent Physical Exam Vital Signs: Last Vital Signs Pulse 65 10/29/24 13:35 Resp 12 10/29/24 13:35 BP 136/68 10/29/24 13:35 Pulse Ox 97 10/29/24 13:35 Oxygen Delivery Method Room Air 10/29/24 13:35 Assessment & Plan Assessment & Plan (1) Medicare annual wellness visit, subsequent: Code(s): Z00.00 - Encounter for general adult medical examination without abnormal findings (2) Thoracic back pain: Code(s): M54.6 - Pain in thoracic spine Qualifiers: Back pain laterality: bilateral Chronicity: chronic Qualified Code(s): M54.6 - Pain in thoracic spine; G89.29 - Other chronic pain (3) Hyperlipidemia: Code(s): E78.5 - Hyperlipidemia, unspecified Qualifiers: Hyperlipidemia type: mixed hyperlipidemia Qualified Code(s): E78.2 - Mixed hyperlipidemia Plan MWV Interval history reviewed Chronic medical conditions stable Continued thoracic back pain. declines referral at present. xray ordered Labs reviewed. Return in one year Orders: Orders XR thoracic spine 3V 10/29/24 M54.6 - Pain in thoracic spine Complete Blood Count Auto Diff 11 Months E78.2 - Mixed hyperlipidemia, G89.29 - Other chronic pain, M54.6 - Pain in thoracic spine, R35.89 - Other polyuria, R53.83 - Other fatigue, Z00.00 - Encounter for general adult medical examination without abnormal findings, Z13.228 - Encounter for screening for other metabolic disorders Comprehensive Met. Panel 11 Months E78.2 - Mixed hyperlipidemia, G89.29 - Other chronic pain, M54.6 - Pain in thoracic spine, R35.89 - Other polyuria, R53.83 - Other fatigue, Z00.00 - Encounter for general adult medical examination without abnormal findings, Z13.228 - Encounter for screening for other metabolic disorders Lipid Panel 11 Months E78.2 - Mixed hyperlipidemia, G89.29 - Other chronic pain, M54.6 - Pain in thoracic spine, R35.89 - Other polyuria, R53.83 - Other fatigue, Z00.00 - Encounter for general adult medical examination without abnormal findings, Z13.228 - Encounter for screening for other metabolic disorders Vitamin D 25-OH (D2 and D3) 11 Months E78.2 - Mixed hyperlipidemia, G89.29 - Other chronic pain, M54.6 - Pain in thoracic spine, R35.89 - Other polyuria, R53.83 - Other fatigue, Z00.00 - Encounter for general adult medical examination without abnormal findings, Z13.228 - Encounter for screening for other metabolic disorders XR thoracic spine 2V 10/29/24 M54.6 - Pain in thoracic spine Hemoglobin A1c 11 Months E78.2 - Mixed hyperlipidemia, G89.29 - Other chronic pain, M54.6 - Pain in thoracic spine, R35.89 - Other polyuria, R53.83 - Other fatigue, Z00.00 - Encounter for general adult medical examination without abnormal findings, Z13.228 - Encounter for screening for other metabolic disorders TSH reflex Free T4 11 Months E78.2 - Mixed hyperlipidemia, G89.29 - Other chronic pain, M54.6 - Pain in thoracic spine, R35.89 - Other polyuria, R53.83 - Other fatigue, Z00.00 - Encounter for general adult medical examination without abnormal findings, Z13.228 - Encounter for screening for other metabolic disorders Coding Level of Care Code Medicare Subsequent (G0439) Diagnoses Medicare annual wellness visit, subsequent Z00.00 Chronic bilateral thoracic back pain M54.6; G89.29 Back pain laterality: bilateral Chronicity: chronic Mixed hyperlipidemia E78.2 Hyperlipidemia type: mixed hyperlipidemia Advance Care Planning Forms completed: None
[2024-10-29 13:35] VITALS: BP 136/68; PULSE 65; RESP 12; O2SAT 97
--- OUTSIDE RECORDS SUMMARY | 2024-10-29 16:19 | XMS_ITS | Patient Health Record ---
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 Problem Primary ovarian failure (88381628) Other primary ovarian failure (E28.39) Active confirmed Problem Diverticulitis of colon (488883970) Diverticulitis of intestine, part unspecified, without perforation or abscess without bleeding (K57.92) Active confirmed Problem Uterovaginal prolapse (70276171) Uterovaginal prolapse, unspecified (N81.4) Active confirmed Problem Functional urinary incontinence (880042300) Functional urinary incontinence (R39.81) Active confirmed Problem Family history of malignant neoplasm of breast (969218100) Family history of malignant neoplasm of breast (Z80.3) Active confirmed Problem Personal history of primary malignant neoplasm of breast (548830257) Personal history of malignant neoplasm of breast (Z85.3) Active confirmed Problem History of carcinoma in situ of breast (2446607945417893 8) Personal history of in-situ neoplasm of breast (Z86.000) Active confirmed Vital Signs Temperature 97.5 degrees Fahrenheit 03/11/2024 Blood pressure diastolic 74 mm Hg 03/11/2024 Height 63 in 03/11/2024 Blood pressure systolic 120 mm Hg 03/11/2024 Weight 112 lbs 03/11/2024 BMI 19.84 kg/m2 03/11/2024 Encounters Encounter Location Date Provider Diagnosis [address] [address] 03/11/2024 Tracie Parker Encounter for gynecological examination [...] (ICD-10 - Z85.3) CONTINUE FOLLOW UP AT [facility]. 03/11/2024 Postmenopausal atrophic vaginitis (ICD-10 - N95.2) [...] Provider Name:Tracie bronson, 03/13/2025 10:20:00 AM, [address] [facility], [address], [place], [address], Insurance Providers Payer Name Payer Address Payer Phone Subscriber Number Group Number Insured Name Patient Relationship to Insured Coverage Start Date Coverage End Date MEDICARE [address] [place] ASH [id number] [phone] [id number] KIKO KWONG Self - patient is the insured [facility] [address] [place] [address] [phone] [id number] KIKO KWONG Self - patient is [...]
--- OUTSIDE RECORDS SUMMARY | 2024-10-29 16:19 | XMS_ITS | Clinical Summary ---
Author Organization [facility] Address [address] [address] [place] [phone] Phone Care Team Providers Care Buffer Copper Name Role Phone Pcp, Unknown Primary Care [...] file Insurance MEDICARE PART A & B [employer] MEDICARE SUPPLEMENT MEDICARE PART A & B [facility] MEDICARE SUPPLEMENT MEDICARE PART A & B [employer] MEDICARE SUPPLEMENT MEDICARE PART A & B [facility] MEDICARE SUPPLEMENT MEDICARE PART A & B Member Subscriber Plan / Payer (Ef fective 2011-Present) Name:Sheila Mejia Member ID:[id number] Relation to Subscriber:Self Name:Sheila Mejia Subscriber ID:[id number] Payer ID:[id number] Group ID:Not on file Type:Medicare Address: [employer] [address] [place] [id number] [place] [address] EXTENSION MEDICARE SUPPLEMENT MEDICARE PART A & B [facility] EXTENSION MEDICARE SUPPLEMENT Care Teams Buffer Copper Relationship Specialty Start Date End Date Pcp, Unknown PCP - General 09/06/23 Additional Source Comments The information contained in this document represents components of the legal health record. It is not the complete legal health record.[facility]
== END 2024-10-29 14:06 | disposition home or self-care (01) ==
LOC: HO.HMCFM 13:18
PROVIDERS: PCP Internal Medicine; Visit Provider Internal Medicine
DX: Z00.00 Encounter for general adult medical examination without abnormal findings (principal); M54.6 Pain in thoracic spine; G89.29 Other chronic pain; E78.2 Mixed hyperlipidemia